=== PATIENT | male | born 1975 | race Caucasian/White ===

== ENCOUNTER 2017-11-04 19:02 | Emergency (ER) | payer SELFPAY ==
[~2017-11-04 19:02] MED LIST: CEPH500C3 PO; IBUP800T23 PO
[2017-11-04 19:06] VITALS: BP 138/73; PULSE 74; RESP 18; TEMP 98.1; O2SAT 97
--- NOTE | 2017-11-05 20:01 | EKG ---
Date Performed: 11/04/2017 Time Performed: 19:17:31 PTAGE: 42 years EKG: Sinus rhythm WITH SINUS ARRHYTHMIA NORMAL ECG NO PREVIOUS TRACING DOCTOR: Jayce Justice Interpretating Date/Time 11/05/2017 20:00:33
== END 2017-11-04 21:54 | disposition left against medical advice (07) ==
LOC: NED 19:02
DX: R07.89 Other chest pain (principal)
CPT/HCPCS: 93005; 99281